=== PATIENT | female | born 2000 | race Caucasian/White ===

== ENCOUNTER 2024-07-29 15:20 | Inpatient (IN) ==
--- NOTE | 2024-07-29 15:44 | Emergency Department Note ---
Impression & Plan Depression with suicidal ideation ED Provider Note NAME: DM HAINES AGE: 23 SEX: F : 2000 ARRIVES VIA: Walk-In INFORMANT: Patient, ED PROVIDER(S): Jonny Johnson MD CHIEF COMPLAINT: Suicidal ideation with plan MEDICAL DECISION MAKING: Patient presents with the above. Blood work was obtained. Patient with a white count of 13 with a normal H&H. Platelet count 454. Kidney function is unremarkable. Urinalysis negative. test negative. Salicylate Tylenol alcohol negative. COVID-negative. Patient was deemed medically cleared seen and evaluated by the family service caseworker and referrals were made. Patient was accepted to 3 S. Discussion w/ other healthcare providers: ED case management Prior /Outside records reviewed: none Differential diagnosis: Mood disorder, infection, hypoglycemia, electrolyte abnormalities, dehydration, medication side effect among others were considered. Diagnostics, as interpreted by me: ECG: none Medical decision rules: Suicide risk severity score Imaging studies: None HPI: Patient presents due to concern for cellulitis suicidal ideation and plan. The patient reports that she has always had the thought of self-harm in the past or trying to cut in order to just feel something but she has been increasingly numb. Patient states that she has had thoughts of cutting herself with the intent to kill her self. This has been something more recent just in the last week or so. Patient does report that she has had some issues that been weighing upon her. 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 Patient denies any chest pains or shortness of breath. Patient does report that she is also in some legal trouble. Patient reports that she has 2 prior charges for retail theft 1 of which will require community service but the other 1 is in limbo and this is made her unsure about the outcome and subsequent future. Patient does drink alcohol socially. She denies any tobacco or drug use. Patient denies any access to guns or weapons. Patient states that her sleep has been erratic sometimes staying awake at night for periods of time and sometimes not sleeping much at all. Patient states that her appetite has been poor. Patient denies any HI or AVH. PAST MEDICAL HISTORY: Depression PAST SURGICAL HISTORY: No pertinent past surgical history SOCIAL HISTORY: Uses alcohol socially. Denies tobacco or drug use. [facility]. HOME MEDICATIONS: See Below ALLERGIES: See Below VITALS: See Below PHYSICAL EXAMINATION: GENERAL: Tearful but in no apparent distress and nontoxic. EYE EXAM: Normal conjunctiva. PERRL, no anisocoria and EOM's grossly intact w/o pain. OROPHARYNX: Moist mucus membranes, grossly normal dentition. NECK: Trachea midline, no stridor. Supple, no nuchal rigidity, no adenopathy, non-tender. No signs of meningismus. FROM of the neck with good chin to chest and neck extension. LUNGS: Clear to auscultation. Normal chest wall mechanics. HEART: NSR, no MRG. ABDOMEN: Abdomen soft, non-tender, no masses, no rebound or guarding. BACK: No CVA TTP. SKIN: No rashes and no bruising. UPPER EXTREMITIES: Upper extremities are grossly normal. LOWER EXTREMITIES: Grossly normal, no edema. NEURO EXAM: A&O x3, cranial nerves II-XII grossly intact, normal speech, moves all 4 extremities. Psych: Tearful, depressed, SI with plan, denies HI or AVH. Past Med/Surg History Problem List (Updated 07/29/24 @ 19:23 by Jonny Johnson MD) Depression with suicidal ideation (Acute) Social History Smoking Status: Never smoker Preferred Language: Uruguayan Feels Safe at Home: Yes Gender Identity: Female Allergies Allergies Allergy/AdvReac Type Severity Reaction Status Date / Time doxycycline Allergy Unknown Verified 07/29/24 15:51 minocycline Allergy Unknown Verified 07/29/24 15:51 Home Meds Home Medications Medication Instructions Recorded Confirmed Control 1 tab PO HS 07/29/24 escitalopram oxalate 10 mg tablet 10 mg PO HS 07/29/24 07/29/24 (Lexapro) Results & Data (ED) Vital Signs Vital Signs - 24 hr 07/29/24 15:30 07/29/24 17:00 07/29/24 18:24 Temperature 36.9 C Temperature Source Temporal Artery Scan Pulse Rate 112 H Pulse Rate [Left Finger] 72 83 Pulse Rhythm [Left Finger] Regular Pulse Strength [Left Finger] Normal Respiratory Rate 19 18 20 Respiratory Effort / Characteristics Non-Labored Spontaneous Respiratory Depth Normal Respiratory Pattern Regular Blood Pressure 148/88 H Blood Pressure [Left Arm] 132/72 133/88 Blood Pressure Mean 108 Blood Pressure Mean [Left Arm] 92 103 Pulse Oximetry 97 98 99 Oxygen Delivery Method Room Air Room Air Sepsis Recent Fever Within 48 Hours No Sepsis New/Unexplained Change in Mental Status N/A Sepsis Action Taken by Nursing No Action Required Home Medications Current Medication List: was personally reviewed by me Laboratory Data Attestation: I reviewed the patient's lab results. 07/29/24 15:46 07/29/24 15:46 Lab Results 07/29/24 07/29/24 07/29/24 Range/Units 15:38 15:46 17:37 WBC 13.51 H (4.8-10.8) K/ul RBC 4.40 (4.20-5.40) M/uL Hgb 13.1 (12.0-16.0) g/dl Hct 38.1 (37.0-47.0) % MCV 86.6 (80.0-100.0) fL MCH 29.8 (25.0-34.0) pg MCHC 34.4 (32.0-36.0) g/dL RDW Std Deviation 39.1 (36.4-46.3) fL RDW Coeff of Kenneth 12.3 (11.5-14.5) % Plt Count 454 H (130-400) K/uL MPV 9.1 L (9.4-12.4) fL Immature Gran % (Auto) 0.5 % Neut % (Auto) 81.1 % Lymph % (Auto) 13.7 % [place] % (Auto) 4.0 % Eos % (Auto) 0.4 % Baso % (Auto) 0.3 % Neut # (Auto) 10.96 H (1.40-6.50) K/uL Lymph # (Auto) 1.85 (1.20-3.40) K/uL [place] # (Auto) 0.54 (0.11-0.59) K/uL Eos # (Auto) 0.05 (0.00-0.50) K/uL Baso # (Auto) 0.04 (0.00-0.20) K/uL Immature Gran # (Auto) 0.07 (0.01-0.20) K/uL Sodium 136 (136-145) mmol/L Potassium 3.7 (3.5-5.1) mmol/L Chloride 104 (98-107) mmol/L Carbon Dioxide 24 (21-32) mmol/L Anion Gap 8 (3-11) BUN 8 (6-23) mg/dl Creatinine 0.80 (0.6-1.2) mg/dl Est Cr Clr Drug Dosing Not Reportable eGFR 107.44 BUN/Creatinine Ratio 10.0 (10-20) Glucose 93 (70-99(Fasting)) mg/dl Calcium 10.0 (8.6-10.3) mg/dl Total Bilirubin 0.3 (0.2-1.0) mg/dl AST 20 (13-39) U/L ALT 17 (7-52) U/L Alkaline Phosphatase 91 (34-104) U/L Total Protein 8.2 (6.0-8.3) gm/dl Albumin 4.8 (3.4-5.0) gm/dl Globulin 3.4 (2.5-4.0) gm/dl Albumin/Globulin Ratio 1.4 (0.9-2) TSH 3.303 (0.300-4.500) uIu/ml Urine Color Yellow Urine Appearance Clear (Clear) Urine pH 6.0 (4.5-7.5) Ur Specific [place] 1.018 (1.000-1.030) Urine Protein Trace H (Negative) Urine Glucose (UA) Negative (Negative) Urine Ketones Trace H (Negative) Urine Blood Negative (Negative) Urine Nitrite Negative (Negative) Urine Bilirubin Negative (Negative) Urine Urobilinogen Negative (Negative) Ur Leukocyte Esterase Trace H (Negative) Urine WBC (Auto) 0-5 (0-5) /hpf Urine RBC (Auto) 0-2 (0-2) /hpf U Hyaline Cast (Auto) 0-2 (0-2) /lpf U Epithel Cells (Auto) 0-2 (0-2) /hpf Urine Bacteria (Auto) None Seen (None Seen) POC Ur Test NEG (NEG) Salicylates < 3.0 L (3.0-30) mg/dl Urine Opiates Screen Neg (Neg) Ur Methadone, Qual Neg (Neg) Urine Fentanyl Screen Neg (Neg) Acetaminophen < 3 L (10-30) ug/ml Urine Barbiturates Neg (Neg) Ur Phencyclidine (PCP) Neg (Neg) U Amphetamin/Meth Scrn Neg (Neg) MDMA (Ecstasy) Screen Neg (Neg) U Benzodiazepines Scrn Neg (Neg) Ur Cocaine Metabolite Neg (Neg) U Marijuana (THC) Screen Neg (Neg) Ethyl Alcohol mg/dL < 10.0 (<10.0) mg/dl SARS-CoV-2, RNA, NAAT NEGATIVE (NEGATIVE) Discharge Plan Visit Data Chief Complaint: Mental Health Evaluation Stated Complaint: DEPRESSION ED Provider: Jonny Johnson Discharge Problem: Depression with suicidal ideation Forms Stand Alone Forms: [facility], Suicide Prevention Resources Prescriptions Prescriptions: No Action escitalopram oxalate [Lexapro] 10 mg Tablet 10 mg PO HS Control 1 tab PO HS Referrals Referrals: PCP,NO [Primary Care Provider] -
[2024-07-29 15:58] LABS: Appearance Urine Clear (Clear); Bacteria Urine Automated None Seen (None Seen); Bilirubin Urine Negative (Negative); Blood Urine Negative (Negative); Cast Urine Automated 0-2 /lpf (0-2); Color Urine Yellow; Epithelial Cell Urine Auto 0-2 /hpf (0-2); Glucose Urine UA Negative (Negative); Ketones Urine Trace (Negative); Leukocyte Esterase Urine Trace (Negative); Nitrite Urine Negative (Negative); Protein Urine Trace (Negative); RBC Urine Automated 0-2 /hpf (0-2); Specific Gravity Urine 1.018 (1.000-1.030); Urobilinogen Urine Negative (Negative); WBC Urine Automated 0-5 /hpf (0-5)
[2024-07-29 16:30] LABS: Acetaminophen < 3 ug/ml (10-30); Basophils # (auto) 0.04 K/uL (0.00-0.20); Basophils % (auto) 0.3 %; Eosinophils # (auto) 0.05 K/uL (0.00-0.50); Eosinophils % (auto) 0.4 %; Hematocrit (blood only) 38.1 % (37.0-47.0); Hemoglobin 13.1 g/dl (12.0-16.0); Immature Granulocytes # (auto) 0.07 K/uL (0.01-0.20); Immature Granulocytes % (auto) 0.5 %; Lymphocytes # (auto) 1.85 K/uL (1.20-3.40); Lymphocytes % (auto) 13.7 %; Mean Corpuscular Hemoglobin 29.8 pg (25.0-34.0); Mean Corpuscular Hgb Conc 34.4 g/dL (32.0-36.0); Mean Corpuscular Volume 86.6 fL (80.0-100.0); Mean Platelet Volume 9.1 fL (9.4-12.4); Monocytes # (auto) 0.54 K/uL (0.11-0.59); Neutrophils # (auto) 10.96 K/uL (1.40-6.50); Neutrophils % (auto) 81.1 %; Platelet Count 454 K/uL (130-400); RDW Coefficient of Variation 12.3 % (11.5-14.5); RDW Standard Deviation 39.1 fL (36.4-46.3); Salicylate < 3.0 mg/dl (3.0-30); White Blood Count 13.51 K/ul (4.8-10.8)
[2024-07-29 16:33] LABS: Alanine Aminotransferase 17 U/L (7-52); Albumin Globulin Ratio 1.4 (0.9-2); Albumin Level 4.8 gm/dl (3.4-5.0); Alkaline Phosphatase 91 U/L (34-104); Anion Gap 8 (3-11); Aspartate Aminotransferase 20 U/L (13-39); Bilirubin,Total 0.3 mg/dl (0.2-1.0); Blood Urea Nitrogen 8 mg/dl (6-23); Carbon Dioxide 24 mmol/L (21-32); Chloride 104 mmol/L (98-107); Globulin 3.4 gm/dl (2.5-4.0); Glucose 93 mg/dl (70-99(Fasting)); Potassium 3.7 mmol/L (3.5-5.1); Sodium 136 mmol/L (136-145); Total Protein 8.2 gm/dl (6.0-8.3)
[2024-07-29 16:37] LABS: Amphetamines+Metham, Urine Neg (Neg); Barbiturates, Urine Neg (Neg); Benzodiazepine, Urine Neg (Neg); Cocaine, Urine Neg (Neg); Fentanyl, Urine Neg (Neg); MDMA (Ecstacy), Urine Neg (Neg); Marijuana, Urine Neg (Neg); Methadone, Urine Neg (Neg); Opiate, Urine Neg (Neg); Phencyclidine, Urine Neg (Neg)
[2024-07-29 16:47] LABS: Thyroid Stimulating Hormone 3.303 uIu/ml (0.300-4.500)
[2024-07-29] MEDS ORDERED: ALUMINUM/MAGNESIUM SUSP 30 ML UDC PO PRN ×2 (20:46→21:49)
[2024-07-29] MEDS: IBUPROFEN 600 MG TAB PO STA (21:01)
[2024-07-29] MEDS ORDERED: MAGNESIUM HYDROXIDE SUSP 30 ML UDC PO PRN (21:49)
[2024-07-29] MEDS ORDERED: hydrOXYzine HCl 25 MG TAB PO PRN ×2 (21:49)
[2024-07-29] MEDS ORDERED: SODIUM CHLORIDE 0.65% NA SOLN 45 ML (OCEAN) PRN (21:49)
[2024-07-29] MEDS ORDERED: BISMUTH SUBSALICYLATE 262 MG CHEW PO PRN (21:49)
--- NOTE | 2024-07-30 09:15 | History & Physical ---
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 Diagnostically consistent with unspecified depression with differential including MDD vs adjustment disorder with depressed mood as well as generalized anxiety disorder with panic attacks. Discussed medication treatment options in detail. Discussed risks, benefits and alternatives. Patient would like continue escitalopram for depression and anx iety and to start and consented to mirtazapine for depression and anxiety augmentation and to help with insomnia. Reviewed side effects including but not limited to: GI, SMITH, sexual side effects, sedation, increased appetite and counseled on black box warning of potential for emergence of or increased SI and need to let staff know should this occur or should they feel unsafe. Also discussed importance of seeking emergency care following discharge if this side effect occurs in the future. Overall I spent a total of 75 minutes for this admission including review of chart records, review of labwork, direct evaluation of the patient, counseling the patient, ordering medication, risk assessment, discussion with the psychiatric liason RN and documentation in the electronic health record. (1) Depression with suicidal ideation: (2) Depression, unspecified: (3) Generalized anxiety disorder with panic attacks: Plan 07/30/2024: The patient was admitted to the [facility] ([facility]) on q15 min checks (behavioral with suicide precautions) for safety. The patient will participate in group, recreational, and milieu therapies and will be offered additional individual and family sessions as clinically appropriate. -start mirtazapine 7.5mg HS -c/w escitalopram 20mg HS (10mg tonight as got 10mg this AM after no dose last night) -Vistaril prn for anxiety/insomnia -Disposition planning: consider outpatient IOP vs individual therapy Inventory Assets Strengths: supportive relationships, willing to get treatment Needs: safety and stabilization, medication adjustment, additional coping skills, increased outpatient services Suicide Risk Level Suicide Risk Level: Moderate (q15 min suicide checks) (SI with plan prior to admission but now denies SI, feels safe in the hospital, feels able to ask for support if needed) Risk Factors Assessment Male: No : Yes Do You Have Access To A Gun?: No Health Problems: No Mental Health Diagnoses: Yes Substance Use Disorders: No Previous Attempt: No Family History of Suicide: No Previous Psychiatric Hospitalization: No Hopelessness: Yes Protective Factors Assessment Employed: No Stable Relationships: Yes Supportive Family: Yes Psychiatric History Identifying Data ANALY HAINES is 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 Chief Complaint "It gave me a feeling of hopelessness and I started to think of cutting myself". History of Present Illness She presents for psychiatric admission for worsening depression and SI with plan of cutting herself in the context of multiple psychosocial stressors including legal charges from retail theft charge from May and academic burden with student teaching demands. She reports experiencing suicidal thoughts and considering by cutting, which intensified after receiving a second legal citation related to a retail theft incident from May. She reports increased anxiety recently with sudden worsening of depression with getting a second legal citation yesterday "with a feeling of hopelessness for the future". She feels like since coming to the hospital and seeking support it is helping her feel better. Denies SI today. She endorses depressive symptoms over the past two weeks including hopelessness in regards to legal citations, increased crying spells, decreased appetite, and difficulty staying asleep (often waking up for an hour during the night). She also reports feeling more tired recently. Analy denies any changes in motivation or loss of interest in previously enjoyable activities. SI started after the first legal citation and lingered over the last two weeks and intensified yesterday in context of new legal citation. She also endorses symptoms of anxiety including worrying about the future, muscle tension (particularly when trying to fall asleep), and a tendency to consider 'what-ifs' and worst-case scenarios. Analy has been experiencing panic attacks, which have increased in frequency from once a month to every other day over the past two weeks since receiving the legal citations. During these attacks, she reports hyperventilating, feeling shaky, and experiencing chest racing. She denies sweating, sense of doom, or fear of dying during these episodes. She is currently prescribed: escitalopram 20mg HS (has been on this for about two years, has helped with day to day anxiety but not helping as much with recent acute stressors, no side effects). Psychiatric ROS notable for no current nor history of symptoms of jumana, psychosis, PTSD, OCD, nor self-harm nor eating disorder. Past Psychiatric History Current Psychiatric Diagnosis: unspecified depressive disorder Outpatient Services: none Previous Psych Admissions: none Do You Have Access To A Gun?: No History of Previous Suicide Attempt: No Past Medication Trials: none Past Head Trauma/Neuro History History of Concussion/Seizure: No Allergies Allergy/AdvReac Type Severity Reaction Status Date / Time doxycycline Allergy Unknown Verified 07/29/24 15:51 minocycline Allergy Unknown Verified 07/29/24 15:51 Home Medications Medication Instructions Recorded Confirmed Type Control 1 tab PO HS 07/29/24 History escitalopram oxalate 10 mg tablet 10 mg PO HS 07/29/24 07/29/24 History (Lexapro) Family History Family History of: Anxiety (mother and father and sister ) and Other-List under Comment (maternal grandmother with eating disorder) Alcohol History Hx of Alcohol Use Over the Past 12 Months: No AUDIT Total Score: 1 Rare use, social settings Smoking Use Have You Smoked or Used Tobacco Products in the Last 30 Days: No Smoking Status: Never smoker Substance History Hx of Prescription Med Misuse Over the Past 12 Months: No Hx of Over the Counter Med Misuse Over the Past 12 Months: No Hx of Inhalent Misuse Over the Past 12 Months: No Hx of Organic Substance Use Over the Past 12 Months: No Hx of Illegal Substances/Street Drug Use Over Past 12 Months: No Problems as a Result of Past Substance Use: None Identified Personal History Living Arrangements: Apartment Childhood: From [facility], parents , younger sister and older brother. Parents are supportive, very close with sister. Highest Grade Completed: Some College ([employer] senior) Employment Status: Student Marital Status: Living w/ Signif. Other (boyfriend, not living together) Number Of Children: none Beliefs That Will Affect Care: None Current Legal Problems: Yes (citations) Hx Legal Problems: No Hx Traumatic Life Events: No Patient History Social History Smoking Status: Never smoker Preferred Language: Kiswahili Communication Ability: Effective Wood Engraver Required: No Beliefs That Will Affect Care: None Feels Safe at Home: Yes Gender Identity: Female Assistive Devices: None Review of Systems Review of Systems: All systems reviewed & are unremarkable except as noted in HPI & below (headache ) Physical Exam Psychiatric: Orientation: alert and oriented x 3 Apperance: appropriately dressed and appropriately groomed Eye Contact: good eye contact Motor Behavior: no abnormal motor movements Speech: normal rate/rhythm/volume of speech Affect: + constricted affect Mood: + depressed mood and + anxious mood Thought Process: goal directed thought process Thought Content: reality based without delusions Suicidal Thoughts: denies suicidal thoughts, denies suicidal plan and denies suicidal intent Homicidal Thoughts: denies homicidal thoughts Hallucinations: no auditory hallucinations and no visual hallucinations Cognition: recent memory grossly intact, remote memory grossly intact, attention grossly intact and language grossly intact Estimated Intelligence: consistent with education level Insight: + fair insight Judgment: + fair judgement Vital Signs (Past 24 Hours): Last Vital Signs Temp 37.1 C 07/30/24 06:00 Pulse 87 07/30/24 06:00 Resp 16 07/30/24 06:00 BP 111/72 07/30/24 06:38 Pulse Ox 95 07/30/24 06:00 O2 Del Method Room Air 07/30/24 06:00 Exam Statement: A physical exam was performed in the ED by Dr. Johnson for the purposes of medical clearance. I accept that physical as correct and adequate for the purposes of the inpatient physical exam. Results & Data ([facility]) Laboratory Results Laboratory Results - last 24 hr 07/29/24 07/29/24 07/29/24 15:38 15:46 17:37 WBC 13.51 H RBC 4.40 Hgb 13.1 Hct 38.1 MCV 86.6 MCH 29.8 MCHC 34.4 RDW Std Deviation 39.1 RDW Coeff of Kenneth 12.3 Plt Count 454 H MPV 9.1 L Immature Gran % (Auto) 0.5 Neut % (Auto) 81.1 Lymph % (Auto) 13.7 [place] % (Auto) 4.0 Eos % (Auto) 0.4 Baso % (Auto) 0.3 Neut # (Auto) 10.96 H Lymph # (Auto) 1.85 [place] # (Auto) 0.54 Eos # (Auto) 0.05 Baso # (Auto) 0.04 Immature Gran # (Auto) 0.07 Sodium 136 Potassium 3.7 Chloride 104 Carbon Dioxide 24 Anion Gap 8 BUN 8 Creatinine 0.80 Est Cr Clr Drug Dosing Not Reportable eGFR 107.44 BUN/Creatinine Ratio 10.0 Glucose 93 Calcium 10.0 Total Bilirubin 0.3 AST 20 ALT 17 Alkaline Phosphatase 91 Total Protein 8.2 Albumin 4.8 Globulin 3.4 Albumin/Globulin Ratio 1.4 TSH 3.303 Urine Color Yellow Urine Appearance Clear Urine pH 6.0 Ur Specific [place] 1.018 Urine Protein Trace H Urine Glucose (UA) Negative Urine Ketones Trace H Urine Blood Negative Urine Nitrite Negative Urine Bilirubin Negative Urine Urobilinogen Negative Ur Leukocyte Esterase Trace H Urine WBC (Auto) 0-5 Urine RBC (Auto) 0-2 U Hyaline Cast (Auto) 0-2 U Epithel Cells (Auto) 0-2 Urine Bacteria (Auto) None Seen POC Ur Test NEG Salicylates < 3.0 L Urine Opiates Screen Neg Ur Methadone, Qual Neg Urine Fentanyl Screen Neg Acetaminophen < 3 L Urine Barbiturates Neg Ur Phencyclidine (PCP) Neg U Amphetamin/Meth Scrn Neg MDMA (Ecstasy) Screen Neg U Benzodiazepines Scrn Neg Ur Cocaine Metabolite Neg U Marijuana (THC) Screen Neg Ethyl Alcohol mg/dL < 10.0 SARS-CoV-2, RNA, NAAT NEGATIVE Current Inpatient Medications Current Inpatient Medications: Current Inpatient Medications Acetaminophen (Acetaminophen 325 Mg Tab) 650 mg PO Q4H PRN PRN Reason: Headache or Minor Fever Stop: 08/28/24 21:48 Al Hydrox/Mg Hydrox/Simethicone (Aluminum/Magnesium Susp 30 Ml Udc) 30 ml PO Q4H PRN PRN Reason: GI Upset Stop: 08/28/24 21:48 Bismuth Subsalicylate (Bismuth Subsalicylate 262 Mg Chew) 2 tab PO Q30M PRN PRN Reason: Loose Stool/Diarrhea Stop: 08/28/24 21:48 Hydroxyzine HCl (Hydroxyzine Hcl 25 Mg Tab) 50 mg PO HSZ PRN PRN Reason: Insomnia Stop: 08/28/24 21:48 Hydroxyzine HCl (Hydroxyzine Hcl 25 Mg Tab) 25 mg PO Q4H PRN PRN Reason: Anxiety Stop: 08/28/24 21:48 Magnesium Hydroxide (Magnesium Hydroxide Susp 30 Ml Udc) 30 ml PO DAILY PRN PRN Reason: Constipation Stop: 08/28/24 21:48 Sodium Chloride (Sodium Chloride 0.65% Na Soln 45 Ml ([place])) 1 - 2 sprays NA PRN PRN PRN Reason: Nasal Dryness/Congestion Stop: 08/28/24 21:48
[2024-07-30] MEDS: ESCITALOPRAM OXALATE 10 MG TAB PO ONE ×2 (10:29→20:50)
[2024-07-30] MEDS: ACETAMINOPHEN 325 MG TAB PO PRN (16:47)
[2024-07-30] MEDS: MIRTAZAPINE TAB 15 MG TAB PO SCH (20:50)
[2024-07-30] MEDS ORDERED: ESCITALOPRAM OXALATE 20 MG TAB PO SCH (22:00)
--- NOTE | 2024-07-31 09:00 | Psychiatric Progress Note ---
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 Diagnostically consistent with unspecified depression with differential including MDD vs adjustment disorder with depressed mood as well as generalized anxiety disorder with panic attacks. A: Mood improving, slept better with mirtazapine, less anxiety today. Future- focused. Tolerating medications without any side effects. Overall, I spent a total of 35 minutes on this case including meeting with the patient, reviewing the chart, nursing report, multidisciplinary team meeting, orders, and documentation. (1) Depression with suicidal ideation: (2) Depression, unspecified: (3) Generalized anxiety disorder with panic attacks: Plan 07/31/2024: -Continue current medications and tx plan 07/30/2024: The patient was admitted to the [facility] (health system mental health unit) on q15 min checks (behavioral with suicide precautions) for safety. The patient will participate in group, recreational, and milieu therapies and will be offered additional individual and family sessions as clinically appropriate. -start mirtazapine 7.5mg HS -c/w escitalopram 20mg HS (10mg tonight as got 10mg this AM after no dose last night) -Vistaril prn for anxiety/insomnia -Disposition planning: consider outpatient IOP vs individual therapy Inventory Assets Strengths: supportive relationships, willing to get treatment Needs: safety and stabilization, medication adjustment, additional coping skills, increased outpatient services Suicide Risk Level Suicide Risk Level: Moderate (q15 min suicide checks) (SI with plan prior to admission but now denies SI, feels safe in the hospital, feels able to ask for support if needed) Suicide Risk Level Comments: Risk Factors Assessment Male: No : Yes Do You Have Access To A Gun?: No Health Problems: No Mental Health Diagnoses: Yes Substance Use Disorders: No Previous Attempt: No Family History of Suicide: No Previous Psychiatric Hospitalization: No Hopelessness: Yes Protective Factors Assessment Employed: No Stable Relationships: Yes Supportive Family: Yes Interval History Identifying Information DM HAINES is 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 Chief Complaint "I'm good, a lot less overwhelmed". Review of Systems Sleep Information Total Hours of Sleep: 6.75 Meal Information Percent Meal Consumed - Breakfast: 10 Percent Meal Consumed - Lunch: 75 Percent Meal Consumed - Dinner: 75 Subjective Subjective Patient was seen & assessed and interval progress reviewed with nursing and social work. Attending groups. Tearful last evening reported home sickness. Signed a 72 hour notice that expires on 08/02 at 1744. Today reports mood is improving, with less anxiety. Denies SI. Slept well with mirtazapine and denies any side effects. Physical Exam Psychiatric Orientation: alert and oriented x 3 Apperance: appropriately dressed and appropriately groomed Eye Contact: good eye contact Motor Behavior: no abnormal motor movements Speech: normal rate/rhythm/volume of speech Affect: euthymic affect Mood: + anxious mood; no depressed mood Thought Process: goal directed thought process Thought Content: reality based without delusions Suicidal Thoughts: denies suicidal thoughts, denies suicidal plan and denies suicidal intent Homicidal Thoughts: denies homicidal thoughts Hallucinations: no auditory hallucinations and no visual hallucinations Cognition: recent memory grossly intact, remote memory grossly intact, attention grossly intact and language grossly intact Estimated Intelligence: consistent with education level Insight: + fair insight Judgment: + fair judgement Vital Signs (Past 24 Hours) Last Vital Signs Temp 37.1 C 07/31/24 06:34 Pulse 76 07/31/24 06:34 Resp 17 07/31/24 06:34 BP 118/76 07/31/24 06:35 Pulse Ox 98 07/31/24 06:34 O2 Del Method Room Air 07/31/24 06:34 Results & Data ([facility]) Current Inpatient Medications Current Inpatient Medications: Current Inpatient Medications Acetaminophen (Acetaminophen 325 Mg Tab) 650 mg PO Q4H PRN PRN Reason: Headache or Minor Fever Stop: 08/28/24 21:48 Last Admin: 07/30/24 16:47 Dose: 650 mg Al Hydrox/Mg Hydrox/Simethicone (Aluminum/Magnesium Susp 30 Ml Udc) 30 ml PO Q4H PRN PRN Reason: GI Upset Stop: 08/28/24 21:48 Bismuth Subsalicylate (Bismuth Subsalicylate 262 Mg Chew) 2 tab PO Q30M PRN PRN Reason: Loose Stool/Diarrhea Stop: 08/28/24 21:48 Escitalopram Oxalate (Escitalopram Oxalate 20 Mg Tab) 20 mg PO HS CABRERA Stop: 08/30/24 21:59 Hydroxyzine HCl (Hydroxyzine Hcl 25 Mg Tab) 50 mg PO HSZ PRN PRN Reason: Insomnia Stop: 08/28/24 21:48 Hydroxyzine HCl (Hydroxyzine Hcl 25 Mg Tab) 25 mg PO Q4H PRN PRN Reason: Anxiety Stop: 08/28/24 21:48 Magnesium Hydroxide (Magnesium Hydroxide Susp 30 Ml Udc) 30 ml PO DAILY PRN PRN Reason: Constipation Stop: 08/28/24 21:48 Mirtazapine (Mirtazapine Tab 15 Mg Tab) 7.5 mg PO HS CABRERA Stop: 08/29/24 21:59 Last Admin: 07/30/24 20:50 Dose: 7.5 mg Sodium Chloride (Sodium Chloride 0.65% Na Soln 45 Ml (Desha)) 1 - 2 sprays NA PRN PRN PRN Reason: Nasal Dryness/Congestion Stop: 08/28/24 21:48 Mental Health & Subst Abuse Tx Therapist Name of Therapist: None Elevator Constructor Supervisor Name of Elevator Constructor Supervisor: None Post Discharge Appointments Primary Care Physician Name Of Family Doctor/PCP: [facility] - [place]
[2024-07-31] MEDS: ESCITALOPRAM OXALATE 20 MG TAB PO SCH (21:14)
--- NOTE | 2024-08-01 10:04 | Discharge Summary ---
Date of Service August 01, 2024 History of Present Illness She presents for psychiatric admission for worsening depression and SI with plan of cutting herself in the context of multiple psychosocial stressors including legal charges from retail theft charge from May and academic burden with student teaching demands. She reports experiencing suicidal thoughts and considering by cutting, which intensified after receiving a second legal citation related to a retail theft incident from May. She reports increased anxiety recently with sudden worsening of depression with getting a second legal citation yesterday "with a feeling of hopelessness for the future". She feels like since coming to the hospital and seeking support it is helping her feel better. Denies SI today. She endorses depressive symptoms over the past two weeks including hopelessness in regards to legal citations, increased crying spells, decreased appetite, and difficulty staying asleep (often waking up for an hour during the night). She also reports feeling more tired recently. Analy denies any changes in motivation or loss of interest in previously enjoyable activities. SI started after the first legal citation and lingered over the last two weeks and intensified yesterday in context of new legal citation. She also endorses symptoms of anxiety including worrying about the future, muscle tension (particularly when trying to fall asleep), and a tendency to consider 'what-ifs' and worst-case scenarios. Analy has been experiencing panic attacks, which have increased in frequency from once a month to every other day over the past two weeks since receiving the legal citations. During these attacks, she reports hyperventilating, feeling shaky, and experiencing chest racing. She denies sweating, sense of doom, or fear of dying during these episodes. She is currently prescribed: escitalopram 20mg HS (has been on this for about two years, has helped with day to day anxiety but not helping as much with recent acute stressors, no side effects). Psychiatric ROS notable for no current nor history of symptoms of jumana, psychosis, PTSD, OCD, nor self-harm nor eating disorder. Physical Exam Vital Signs (Past 24 Hours) Last Vital Signs Temp 37.1 C 08/01/24 06:00 Pulse 76 07/31/24 06:34 Resp 14 08/01/24 06:00 BP 98/61 L 08/01/24 06:00 Pulse Ox 95 08/01/24 06:00 O2 Del Method Room Air 08/01/24 06:00 Principal Diagnosis Unspecified Depressive Disorder Psychiatric Data See daily stay summary. In short, patient was engaged with the social/therapeutic milieu of the unit, safety was maintained and the patient was cooperative with care. Medication changes included initiation of mirtazapine for depression & anxiety augmentation and insomnia and they tolerated this well. A support session was held and safety plan was completed prior to discharge. They participated in safety planning and in discussions about ways to seek support and recognizing warning signs and utilizing coping skills. Reviewed ways to have their safety plan and contacts easily available should thoughts of SI r e-emerge in the future. Reviewed importance of seeking emergency care should SI intensify, worsen or should they feel unsafe in the future which they agree to do. 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 Day of Discharge Assessment Today the patient voices readiness for discharge. They note improvement in mood and anxiety. They deny thoughts of harm to self or others. Thoughts remain organized and they are clinically improved from admission. There is no evidence of psychosis. They improved in the hospital with support and medication adjustments. They agree to take medications as prescribed and keep follow-up appointments. At the time of the discharge they are deemed to be stable and appropriate for outpatient level of care. They are not deemed to be at imminent risk of harm to self or others. They are aware of emergency and crisis services. Knows to call 911 or go to nearest emergency care center if in a crisis which cannot be handled as an outpatient. Suicide risk assessment: Acute risk is low given improvement in mood and denial of SI, lack of access to lethal means, improvement in sleep, lessening of anxiety and hopefulness. Chronic risk is moderate given some non-modifiable risk factors: psychiatric co- morbid diagnoses, emotional reactivity, but also with protective factors including student, good social support, sense of responsibility to family and social supports, outpatient care in place, positive coping skills, positive problem solving, willingness to engage with treatment and self-observation. Counseled on ways to reduce acute and chronic risk including engaging with outpatient providers, using safety plan if needed, utilizing supports, taking medication, and using coping skills. Modifiable risk factors of SI, anxiety and depression were addressed during hospitalization through development of new coping skills, support meeting, safety planning, and medication adjustments. Discharge physical exam: See admission H&P, MSE per above and day of discharge summary. Overall, I spent a total of 35 minutes on this case including meeting with the patient, reviewing the chart, nursing report, multidisciplinary team meeting, discharge orders, anticipatory planning, safety planning, risk assessment and documentation. Transition of Care Transition Of Care Record: was reviewed with the patient Advance Directives Advance Directives Information Provided: Yes Advance Directives: No Mental Health Advance Directive: No Advance Directives on File: No Living Will: No Power of Assistant Inventory Manager: No Advance Directives Reason:: Declines as Mental Health Visit. Suicide Risk Level Suicide Risk Level Comments: Acute risk is low given denial of SI, future oriented, see further assessment above. 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 ) Stable Relationships: Yes Supportive Family: Yes Tobacco Cessation at Discharge Tobacco Cessation Medication Prescribed at Discharge: Not Applicable/Non-Smoker Discharge Data Lab Results 07/29/24 07/29/24 07/29/24 15:38 15:46 17:37 WBC 13.51 H RBC 4.40 Hgb 13.1 Hct 38.1 MCV 86.6 MCH 29.8 MCHC 34.4 RDW Std Deviation 39.1 RDW Coeff of Kenneth 12.3 Plt Count 454 H MPV 9.1 L Immature Gran % (Auto) 0.5 Neut % (Auto) 81.1 Lymph % (Auto) 13.7 [place] % (Auto) 4.0 Eos % (Auto) 0.4 Baso % (Auto) 0.3 Neut # (Auto) 10.96 H Lymph # (Auto) 1.85 [place] # (Auto) 0.54 Eos # (Auto) 0.05 Baso # (Auto) 0.04 Immature Gran # (Auto) 0.07 Sodium 136 Potassium 3.7 Chloride 104 Carbon Dioxide 24 Anion Gap 8 BUN 8 Creatinine 0.80 Est Cr Clr Drug Dosing Not Reportable eGFR 107.44 BUN/Creatinine Ratio 10.0 Glucose 93 Calcium 10.0 Total Bilirubin 0.3 AST 20 ALT 17 Alkaline Phosphatase 91 Total Protein 8.2 Albumin 4.8 Globulin 3.4 Albumin/Globulin Ratio 1.4 TSH 3.303 Urine Color Yellow Urine Appearance Clear Urine pH 6.0 Ur Specific [place] 1.018 Urine Protein Trace H Urine Glucose (UA) Negative Urine Ketones Trace H Urine Blood Negative Urine Nitrite Negative Urine Bilirubin Negative Urine Urobilinogen Negative Ur Leukocyte Esterase Trace H Urine WBC (Auto) 0-5 Urine RBC (Auto) 0-2 U Hyaline Cast (Auto) 0-2 U Epithel Cells (Auto) 0-2 Urine Bacteria (Auto) None Seen POC Ur Test NEG Salicylates < 3.0 L Urine Opiates Screen Neg Ur Methadone, Qual Neg Urine Fentanyl Screen Neg Acetaminophen < 3 L Urine Barbiturates Neg Ur Phencyclidine (PCP) Neg U Amphetamin/Meth Scrn Neg MDMA (Ecstasy) Screen Neg U Benzodiazepines Scrn Neg Ur Cocaine Metabolite Neg U Marijuana (THC) Screen Neg Ethyl Alcohol mg/dL < 10.0 SARS-CoV-2, RNA, NAAT NEGATIVE Hospital Course (1) Depression with suicidal ideation: (2) Depression, unspecified: (3) Generalized anxiety disorder with panic attacks: Plan 08/01/2024: Feels safe and ready for discharge 07/31/2024: -Continue current medications and tx plan 07/30/2024: The patient [facility] on q15 min checks (behavioral with suicide precautions) for safety. The patient will participate in group, recreational, and milieu therapies and will be offered additional individual and family sessions as clinically appropriate. -start mirtazapine 7.5mg HS -c/w escitalopram 20mg HS (10mg tonight as got 10mg this AM after no dose last night) -Vistaril prn for anxiety/insomnia -Disposition planning: consider outpatient IOP vs individual therapy Mental Health & Subst Abuse Tx Psychiatrist Name of Psychiatrist: [facility] Psych[facility]rist's Date Of Appointment With Psychiatric Provider: 08/04/24 Time of Appointment with Psychiatrist: 5:00 PM Psychiatric Appointment Comment: Therapist will connect to psychiatrist for medication management Psychiatrist Release of Information: Obtained, Reviewed and Signed Therapist Name of Therapist: Marely RegeneratePiero Cano Therapist's Date of Therapist Appointment: 08/04/24 Time of Therapist Appointment: 5:00 pm Therapy Appointment Comment: Mother scheduled Therapist Release of Information: Obtained and Reviewed Cullet Trucker Name of Cullet Trucker: None Post Discharge Appointments Primary Care Physician Name Of Family Doctor/PCP: Main Line - [facility] Home Health Services:: None Smoking Cessation Counseling Tobacco Cessation Medication Prescribed at Discharge: Not Applicable/Non-Smoker Other #1: Name of Aftercare Appointment: Student Care and Advocacy Date of Aftercare Appointment: 08/05/24 Time of Aftercare Appointment: 10am Aftercare Appointment Comment: Video link will be sent to [employer] email Release of Information Aftercare Appointment: Obtained, Reviewed and Signed Contact Information Discharge Discharge Address: [facility] [place] [id number] Discharge Plan Discharge Items Patient Disposition: Home - Self-Care Reason For Visit: DEPRESSION WITH SUICIDALITY Discharge Diagnosis: Unspecified Depressive Disorder Activity: Resume your previous activity Non-emergency contact: Primary Care Provider and Therapist Call non-emergency contact if: you have any medication questions and your symptoms worsen Follow-up/Referrals: PCP,NO [Primary Care Provider] - Diet: Regular Addtl Attending Provider Instructions: Optional mobile apps we discussed: -Suicide safety plan -Virtual Hope Box -Headspace ($) SPECIAL CARE INSTRUCTIONS: 1. Follow through with your scheduled aftercare appointments. If unable to keep an appointment, please call to reschedule. 2. Take your medication only as prescribed. Medication should not be changed or stopped without the approval of your doctor. In the event of worsening symptoms or concerns about side effects, contact your doctor immediately. 3. Utilize new healthy coping skills, anger management skills, and stress management skills learned during your hospitalization. Journal feelings and process them with a support person. Identify stressors or situations that may result in relapse, deterioration or inappropriate behaviors and develop a plan to deal with those issues. 4. If your coping skills are ineffective and you are in crisis, contact your outpatient providers for direction. If unable to reach your providers, please call the [facility] CRISIS LINE AT , go to the [facility] walk-in center at [address], [address], [place], or go to the closest Emergency Room. 5. Avoid alcohol and un-prescribed drugs. 6. You have been provided with the Mental Health Advance Directives Pamphlet for your review. 7. Your condition is stable for discharge to outpatient level of care, but recovery is an ongoing process. Ifthoughts to harm yourself or others return, follow the safety plan developed during your stay. Planning for a safe return home includes securing weapons. Our treatment team recommends weaponsbe removed from the home until your outpatient provider reassesses your progress. In rare cases where the items themselvescannot be removed, guns and ammunitionshould be secured separatelyand keys stored by a reliable personoutside of the home. If you were admitted on an involuntary commitment, the police or other legal authorities may be involved in this process. AFTERCARE APPOINTMENTS: * Please call your insurance company prior to your scheduled appointment to confirm your aftercare providers are covered. Take your insurance information to your appointments. WHO TO CALL AND WHEN: Medical Emergencies: For questions or emergencies related to your hospital stay, please contact the Inpatient Behavioral Health Unit at [phone]. A psychiatric clinical nurse specialist is on-call 18/12 for the Behavioral Health Unit for emergencies At any time you feel your situation is an emergency, you may also call 911 immediately. National Crisis Hotline: 491 Pending Studies at Discharge: No Stand-Alone Forms: My [facility] Medications and DC Order Prescriptions: New hydroxyzine HCl 25 mg Tablet 25 mg PO BID PRN (Reason: anxiety/insomnia) 30 Days Qty: 30 0RF mirtazapine 7.5 mg tablet 7.5 mg PO HS 30 Days Qty: 30 0RF Continued Control 1 tab PO HS Changed escitalopram oxalate [Lexapro] 10 mg Tablet 20 mg PO HS Qty: 0 0RF Discharge Orders: Discharge Order (Routine); Ordered 08/01/24 Ordered By: Maria Teresa Tate Admission Data Admit Date/Time: 07/29/24 20:46 Attending Provider: Maria Teresa Tate Admit Provider: Maria Teresa Tate Primary Care Provider: PCP,NO Other Interventions: Discharge Summary Assessment (RN) Last Done: 08/01/24 10:00 PSY Interdisciplinary Discharge Planning Last Done: 08/01/24 10:08 Coding Level of Care Code 55870 D/C day mgmt > 30 min Diagnoses Depression with suicidal ideation F32.A; R45.851 Depression, unspecified F32.A Generalized anxiety disorder with panic attacks F41.1; F41.0
== END 2024-08-01 10:35 | disposition home or self-care (01) | DRG 881 ==
LOC: ED 15:20 → 3S 20:46